=== PATIENT | female | born 1985 | race Two or more races ===

== ENCOUNTER 2024-12-15 09:22 | Outpatient (CLI) | payer OTHER | END 2024-12-15 09:23 | disposition home or self-care (01) | LOC: PRENATAL 09:22 | PROVIDERS: ATTEND Obstetrics & Gynecology Maternal & Fetal Medicine | DX: O44.00 Complete placenta previa NOS or without hemorrhage, unspecified trimester (principal); O09.529 Supervision of elderly multigravida, unspecified trimester; Z3A.21 21 weeks gestation of pregnancy ==

== ENCOUNTER 2025-03-10 13:50 | Outpatient (CLI) | payer OTHER ==
[2025-03-11] MEDS ORDERED: HUMULIN N100 UNIT/2 SUBCUTANEO (10:05)
[2025-03-11] MEDS ORDERED: INSULIN SYRING1 EA29 SUBCUTANEO (10:06)
== END 2025-03-10 13:55 | disposition home or self-care (01) ==
LOC: PRENATAL 13:50
PROVIDERS: ATTEND Obstetrics & Gynecology Maternal & Fetal Medicine
DX: O26.849 Uterine size-date discrepancy, unspecified trimester (principal); O36.8199 Decreased fetal movements, unspecified trimester, other fetus; O09.529 Supervision of elderly multigravida, unspecified trimester; O24.419 Gestational diabetes mellitus in pregnancy, unspecified control; Z3A.34 34 weeks gestation of pregnancy

== ENCOUNTER → 2025-04-08 08:42 | Outpatient (CLI) | payer OTHER ==
[~2025-04-08 08:42] MED LIST: CHILDREN'S ASPI81 MG PO; HUMULIN 70100 UNIT/2 SUBCUTANEO; HUMULIN N100 UNIT/2 SUBCUTANEO; INSULIN SYRING1 EA29 SUBCUTANEO; PRENATA CHEWAB1 EACH PO
== END | disposition home or self-care (01) ==
LOC: PRENATAL 08:42
PROVIDERS: ATTEND Obstetrics & Gynecology Maternal & Fetal Medicine
DX: O26.849 Uterine size-date discrepancy, unspecified trimester (principal); O36.8199 Decreased fetal movements, unspecified trimester, other fetus; O09.529 Supervision of elderly multigravida, unspecified trimester; O24.419 Gestational diabetes mellitus in pregnancy, unspecified control; Z3A.38 38 weeks gestation of pregnancy

== ENCOUNTER 2025-04-08 13:39 | Outpatient (CLI) | payer OTHER ==
[~2025-04-08] VITALS: Ht 175.3 cm; Wt 116.1 kg
[~2025-04-08 13:39] MED LIST changes: -CHILDREN'S ASPI81 MG PO; -HUMULIN 70100 UNIT/2 SUBCUTANEO; -PRENATA CHEWAB1 EACH PO
[2025-04-08 14:05] VITALS: BP 112/75
[2025-04-08 15:35] VITALS: BP 115/81
[2025-04-08] MEDS ORDERED: CHILDREN'S ASPI81 MG PO (15:36)
[2025-04-08] MEDS ORDERED: PRENATA CHEWAB1 EACH PO (15:36)
[2025-04-08] MEDS ORDERED: HUMULIN 70100 UNIT/2 SUBCUTANEO (15:38)
[2025-04-08] MEDS ORDERED: RINGERS SOLUTION,LACTATED 1,000 ML IV SCH (15:45)
[2025-04-08 18:07] VITALS: BP 115/78
== END 2025-04-08 18:14 | disposition home or self-care (01) ==
LOC: OBS/DEL 13:39
PROVIDERS: ATTEND Obstetrics & Gynecology
DX: O36.8330 Maternal care for abnormalities of the fetal heart rate or rhythm, third trimester, not applicable or unspecified (principal); Z3A.36 36 weeks gestation of pregnancy

== ENCOUNTER 2025-04-14 07:45 | Inpatient (IN) | payer OTHER ==
[~2025-04-14] VITALS: Ht 175.3 cm; Wt 3.2 kg
[~2025-04-14 07:45] MED LIST changes: +CHILDREN'S ASPI81 MG PO; +HUMULIN 70100 UNIT/2 SUBCUTANEO; +PRENATA CHEWAB1 EACH PO
[2025-04-14 08:13] VITALS: BP 126/69
[2025-04-14 08:59] LABS: BASO % 0.3 % (0.1-1.2); EOS % 1.8 % (0.7-7.0); HEMOGLOBIN 12.4 g/dL (11.2-15.7); LYMPH # 2.35 (1.18-3.74); LYMPH % 21.5 % (19.3-53.1); MONO # 0.67 (0.24-0.82); MONO % 6.1 % (4.7-12.5); NEUT % 69.7 % (34.0-71.1); PLATELET COUNT 245 K/uL (163-369); RED BLOOD COUNT 4.77 M/uL (3.93-5.22); RED CELL DISTRIBUTION WIDTH 14.8 % (11.6-14.4)
[2025-04-14] MEDS ORDERED: MISOPROSTOL 25 MCG/4 ML GEL.W.APPL VAG NR (09:30)
[2025-04-14 09:34] LABS: URINE APPEARANCE Clear; URINE BILIRRUBIN Negative (NEGATIVE); URINE BLOOD Negative; URINE COLOR Yellow; URINE KETONE Negative (NEGATIVE); URINE LEUKOCYTE Trace; URINE NITRATE Negative; URINE PROTEIN Trace (NEGATIVE); URINE UROBILINOGEN 0.2 E.U./dl
[2025-04-14 09:38] LABS: URINE BACTERIA 389.1 uL (0.0-1933); URINE EPITHELIAL CELLS 16.4 uL (0.0-38.8); URINE RBC 3.9 uL (0.0-20.8); URINE WBC 15.1 uL (0.0-23.2)
[2025-04-14 09:44] LABS: INR 0.94; PARTIAL THROMBOPLASTIN TIME 28.4 SECONDS (22.0-34.0); PROTHROMBIN TIME 10.3 SECONDS (9.0-11.5)
[2025-04-14 09:52] LABS: URINE CAST 0.29 uL (0.0-1.40); URINE GLUCOSE 100 MG/DL (NEGATIVE)
[2025-04-14 11:23] VITALS: BP 108/64
[2025-04-14] MEDS ORDERED: AMPICILLIN SODIUM 2,000 MG VIAL IV STA (11:26)
[2025-04-14 12:56] LABS: ALBUMIN 2.7 gm/dL (3.4-5.0); BILIRUBIN TOTAL 0.63 mg/dL (0.3-1.2); CALCIUM 9.4 mg/dL (8.5-10.1); CREATININE SERUM 0.59 mg/dL (0.55-1.02); GFR 111.78; GLOBULINA 3.8 G/DL (2.4-3.5); POTASSIUM 4.06 mEq/L (3.5-5.1); TOTAL PROTEIN 6.5 gm/dL (6.4-8.2)
[2025-04-14] MEDS ORDERED: PRENATAL TABLE1 EAC1 PO (14:25)
[2025-04-14] MEDS ORDERED: ADULT LOW DOSE81 M1 PO (14:25)
[2025-04-14 15:35] VITALS: BP 105/63
[2025-04-14] MEDS ORDERED: MISOPROSTOL 25 MCG/4 ML GEL.W.APPL VAG ONE (16:45)
[2025-04-14 19:10] VITALS: BP 106/63; BP 139/72
[2025-04-14 23:47] VITALS: BP 110/62
[2025-04-15 03:52] VITALS: BP 116/76
[2025-04-15 07:46] VITALS: BP 114/64
[2025-04-15] MEDS ORDERED: OXYTOCIN 500 ML IV SCH (08:15)
[2025-04-15] MEDS ORDERED: MORPHINE SULFATE 4 MG/ML CARTRIDGE IV ONE (13:00)
[2025-04-15 13:17] VITALS: BP 117/66
[2025-04-15] MEDS ORDERED: OXYTOCIN 20 UNITS/1000ML RL PIGGYBAG IV ONE (15:15)
[2025-04-15] MEDS ORDERED: ERYTHROMYCIN BASE OPHT 1GM EACH TUBE OP ONE ×2 (15:15→19:32)
[2025-04-15] MEDS ORDERED: LIDOCAINE HCL 1% 10ML VIAL ONE (15:16)
[2025-04-15] MEDS ORDERED: CHLORHEXIDINE GLUCONATE 120 ML BOTTLE TOP ONE (15:16)
[2025-04-15 15:27] VITALS: BP 138/70
[2025-04-15 16:16] VITALS: BP 138/70
[2025-04-15] MEDS ORDERED: CEFAZOLIN SODIUM 1,000 MG VIAL ONE (19:00)
[2025-04-15] MEDS ORDERED: CEFAZOLIN SODIUM 1,000 MG VIAL IV SCH (19:15)
[2025-04-15] MEDS ORDERED: OXYTOCIN 10 UNITS/ML VIAL ONE (19:32)
[2025-04-15] MEDS ORDERED: OXYTOCIN 1,000 ML IV SCH (20:30)
[2025-04-15] MEDS ORDERED: PROMETHAZINE HCL 25 MG/ML AMPUL IV PRN (20:30)
[2025-04-15] MEDS ORDERED: KETOROLAC TROMETHAMINE 30 MG VIAL IV PRN (20:30)
[2025-04-15] MEDS ORDERED: MORPHINE SULFATE 4 MG/ML CARTRIDGE IV PRN (20:45)
[2025-04-16] MEDS ORDERED: OXYTOCIN 10 UNITS/ML VIAL ONE (01:29)
[2025-04-16 02:17] LABS: BASO % 0.1 % (0.1-1.2); EOS # 0.08 (0.04-0.54); EOS % 0.4 % (0.7-7.0); HEMATOCRIT 36.9 % (34.1-44.9); HEMOGLOBIN 12.2 g/dL (11.2-15.7); LYMPH # 1.98 (1.18-3.74); LYMPH % 9.4 % (19.3-53.1); MEAN CORPUSCULAR HEMOGLOBIN 26.4 pg (25.6-32.2); MONO # 1.31 (0.24-0.82); MONO % 6.3 % (4.7-12.5); NEUT # 17.42 (1.56-6.13); NEUT % 83.1 % (34.0-71.1); PLATELET COUNT 247 K/uL (163-369); RED BLOOD COUNT 4.62 M/uL (3.93-5.22); RED CELL DISTRIBUTION WIDTH 14.8 % (11.6-14.4)
[2025-04-16 02:22] VITALS: BP 140/71
[2025-04-16 08:39] VITALS: BP 105/65; O2SAT 98
[2025-04-16] MEDS ORDERED: OxyCODONE HCL 5 MG TABLET (ROXICODONE) PO PRN (09:00)
[2025-04-16] MEDS ORDERED: DOCUSATE SODIUM 100MG CAP PO SCH (09:00)
[2025-04-16] MEDS ORDERED: ACETAMINOPHEN 325 MG TABLET PO SCH (09:00)
[2025-04-16] MEDS ORDERED: SIMETHICONE 125 MG CAPSULE PO SCH (09:00)
[2025-04-16] MEDS ORDERED: IBUprofen 800 MG TABLET PO PRN (09:00)
[2025-04-16] MEDS ORDERED: OxyCODONE HCL/APAP UD (PERCOCET) PO PRN (09:00)
[2025-04-16 16:00] VITALS: BP 104/64; O2SAT 97
[2025-04-16 20:00] VITALS: BP 109/73
[2025-04-17 01:39] VITALS: BP 102/65
[2025-04-17 09:31] VITALS: BP 112/67
[2025-04-17] MEDS ORDERED: IBU800 MG PO (09:36)
[2025-04-17] MEDS ORDERED: COLACE100 MG PO (09:36)
== END 2025-04-17 16:15 | disposition home or self-care (01) | DRG 788 ==
LOC: LDR 07:45 → OB/GYN 07:45
PROVIDERS: Student in an Organized Health Care Education/Training Program; ADMIT Obstetrics & Gynecology; ATTEND Obstetrics & Gynecology
PROC: 4A1HXCZ Monitoring of Products of Conception, Cardiac Rate, External Approach (ICD-10-PCS; 2025-04-14)
PROC: 3E0P7VZ Introduction of Hormone into Female Reproductive, Via Natural or Artificial Opening (ICD-10-PCS; 2025-04-14)
PROC: 3E033VJ Introduction of Other Hormone into Peripheral Vein, Percutaneous Approach (ICD-10-PCS; 2025-04-15)
PROC: 10D00Z1 Extraction of Products of Conception, Low, Open Approach (ICD-10-PCS; principal; 2025-04-15 19:15)
DX: O82 Encounter for cesarean delivery without indication (principal); O62.1 Secondary uterine inertia; O24.429 Gestational diabetes mellitus in childbirth, unspecified control; Z3A.37 37 weeks gestation of pregnancy; Z37.0 Single live birth